=== PATIENT | male | born 1985 | race Caucasian/White ===

== ENCOUNTER 2017-12-18 23:39 | Emergency (ER) | payer MEDICAID ==
[2017-12-18 23:44] VITALS: O2SAT 94
[2017-12-18] MEDS ORDERED: FAMOTIDINE 20 MG/2 ML SDV IVP ONE (23:46)
[2017-12-18] MEDS ORDERED: ONDANSETRON 4 MG/2 ML VIAL IVP ONE (23:46)
[2017-12-18] MEDS ORDERED: NS 1,000 ML IV ONE (23:46)
--- NOTE | 2017-12-18 23:46 | EDPHY ---
H & P Stated Complaint: epigastric abd pain. "I am an alcholic" vomiting blood HPI/ROS: HPI CHIEF COMPLAINT: Epigastric abdominal pain HISTORY OF PRESENT ILLNESS: This patient very pleasant 32-year-old male, he is an alcoholic and drinks 12-14 beers per day. Patient presents emergency room with abdominal pain located in his epigastric region. He states after he binge drinks a large amount of alcohol he gets this discomfort in his abdomen. States this happens to him for very frequently. He drank 12-14 beers yesterday and then started developing epigastric abdominal pain. Denies chest pain or shortness of breath. Denies lower abdominal pain. He states he vomited multiple times today. 1 episode of vomiting had some blood streaks in it. No dark black tarry stool. Denies fever. Past Medical History: Alcohol-induced gastritis, daily alcohol use, alcoholism Past Surgical History: Abscess right arm Social History: Daily alcohol use 12-14 beers per day. Works in construction. Denies other illicit drugs. Family History: Noncontributory ROS REVIEW OF SYSTEMS: A comprehensive 10 point review of systems is otherwise negative aside from elements mentioned in the history of present illness. Exam Constitutional appears well nontoxic no acute distress, triage nursing summary reviewed, vital signs reviewed, awake/alert. Eyes normal conjunctivae and sclera, EOMI, PERRLA. HENT normal inspection, atraumatic, moist mucus membranes, no epistaxis, neck supple/ no meningismus, no raccoon eyes. Respiratory clear to auscultation bilaterally, normal breath sounds, no respiratory distress, no wheezing. Cardiovascular rate normal, regular rhythm, no murmur, no edema, distal pulses normal. Gastrointestinal mild tender palpation epigastric region, no rebound, no guarding, normal bowel sounds, no distension, no pulsatile mass. Genitourinary no CVA tenderness. Musculoskeletal no midline vertebral tenderness, full range of motion, no calf swelling, no tenderness of extremities, no meningismus, good pulses, neurovascularly intact. Skin pink, warm, & dry, no rash, skin atraumatic. Neurologic awake, alert and oriented x 3, AAOx3, moves all 4 extremities equally, motor intact, sensory intact, CN II-XII intact, normal cerebellar, normal vision, normal speech. Psychiatric normal mood/affect. Heme/Lymph/Immune no lymphadenopathy. Differential diagnosis includes but is not limited to and in no particular order : Gastritis, peptic ulcer disease, alcohol-induced gastritis, pancreatitis Bowel obstruction, appendicitis, gallbladder disease, diverticulitis, colitis, enteritis, perforated viscus, gastritis, GERD, esophagitis, urinary tract infection, pyelonephritis, kidney stones Medical Decision Making: Plan for this patient IV establishment with blood draw , check lipase, IV fluids, IV Pepcid IV Zofran nausea, and re-evaluate. Re-evaluation: CT scan abdomen pelvis with IV contrast is negative for acute inflammatory process. Not explain the patient's epigastric pain. On re-examination the patient received IV Protonix. IV Pepcid. IV Zofran. IV fluids, GI cocktail 1 mg IV Dilaudid. This blood work has been reviewed is unremarkable Patient is feeling much better. He would like to go home. I do recommend he refrain from drinking alcohol as this is causing his stomach to be upset. Return precautions discussed with the patient understands return emergency room if develops worsening abdominal pain fever vomiting. Prescription of or ranitidine. Source: Patient - Personal History Current Tetanus/Diphtheria Vaccine: Unsure Current Tetanus Diphtheria and Acellular Pertussis (TDAP): Unsure - Medical/Surgical History Hx Asthma: No Hx Chronic Respiratory Disease: No Hx Diabetes: No Hx Cardiac Disease: No Hx Renal Disease: No Hx Cirrhosis: No Hx Alcoholism: Yes Hx HIV/AIDS: No Hx Splenectomy or Spleen Trauma: No Other PMH: ARM FX W/ SURGERY(I&D), IVDA (heroin), ETOH - Social History Smoking Status: Current some day smoker Constitutional: Initial Vital Signs Temperature (C) 36.5 C 12/18/17 23:41 Heart Rate 88 12/18/17 23:41 Respiratory Rate 16 12/18/17 23:41 Blood Pressure 143/102 H 12/18/17 23:41 O2 Sat (%) 94 12/18/17 23:41 O2 Delivery Mode Room Air Allergies/Adverse Reactions: amoxicillin Allergy (Verified 12/18/17 23:40) Penicillins Allergy (Verified 12/18/17 23:40) Home Medications: Medication Instructions Recorded Ranitidine HCl 150 mg PO DAILY #14 tablet 12/19/17 Medical Decision Making - Data Points Laboratory Results: Laboratory Results 12/19/17 00:00 12/19/17 00:00 12/19/17 12/19/17 12/19/17 01:00 00:00 00:00 WBC RBC Hgb Hct MCV MCH MCHC RDW Plt Count MPV Neut % (Auto) Lymph % (Auto) [place] % (Auto) Eos % (Auto) Baso % (Auto) Nucleat RBC Rel Count Absolute Neuts (auto) Absolute Lymphs (auto) Absolute Monos (auto) Absolute Eos (auto) Absolute Basos (auto) Absolute Nucleated RBC Immature Gran % Immature Gran # PT 14.0 SEC SEC (12.0-15.0) INR 1.06 (0.83-1.16) APTT 26.2 SEC SEC (23.0-38.0) Sodium 146 mEq/L H mEq/L (135-145) Potassium 4.5 mEq/L mEq/L (3.5-5.2) Chloride 101 mEq/L mEq/L (97-110) Carbon Dioxide 23 mEq/l mEq/l (22-31) Anion Gap 22 mEq/L H mEq/L (8-16) BUN 14 mg/dL mg/dL (7-23) Creatinine 0.9 mg/dL mg/dL (0.7-1.3) Estimated GFR > 60 Glucose 110 mg/dL H mg/dL (70-100) Calcium 11.2 mg/dL H mg/dL (8.5-10.4) Phosphorus 4.2 mg/dL mg/dL (2.5-4.5) Total Bilirubin 0.6 mg/dL mg/dL (0.1-1.4) Conjugated Bilirubin 0.3 mg/dL mg/dL (0.0-0.5) Unconjugated Bilirubin 0.3 mg/dL mg/dL (0.0-1.1) AST 53 IU/L IU/L (17-59) ALT 77 IU/L H IU/L (21-72) Alkaline Phosphatase 67 IU/L IU/L (38-126) Total Protein 8.1 g/dL g/dL (6.3-8.2) Albumin 5.3 g/dL H g/dL (3.5-5.0) Lipase 105 IU/L IU/L (23-300) Urine Color YELLOW Urine Appearance CLEAR Urine pH 9.0 H (5.0-7.5) Ur Specific [place] 1.014 (1.002-1.030) Urine Protein NEGATIVE (NEGATIVE) Urine Ketones NEGATIVE (NEGATIVE) Urine Blood NEGATIVE (NEGATIVE) Urine Nitrate NEGATIVE (NEGATIVE) Urine Bilirubin NEGATIVE (NEGATIVE) Urine Urobilinogen NEGATIVE EU EU (0.2-1.0) Ur Leukocyte Esterase NEGATIVE (NEGATIVE) Urine Glucose NEGATIVE (NEGATIVE) Ethyl Alcohol 51 mg/dL H mg/dL (0-10) 12/19/17 00:00 WBC 6.89 10^3/uL 10^3/uL (3.80-9.50) RBC 4.99 10^6/uL 10^6/uL (4.40-6.38) Hgb 16.2 g/dL g/dL (13.7-17.5) Hct 45.1 % % (40.0-51.0) MCV 90.4 fL fL (81.5-99.8) MCH 32.5 pg pg (27.9-34.1) MCHC 35.9 g/dL g/dL (32.4-36.7) RDW 13.1 % % (11.5-15.2) Plt Count 183 10^3/uL 10^3/uL (150-400) MPV 9.9 fL fL (8.7-11.7) Neut % (Auto) 62.1 % % (39.3-74.2) Lymph % (Auto) 27.1 % % (15.0-45.0) [place] % (Auto) 9.3 % % (4.5-13.0) Eos % (Auto) 0.3 % L % (0.6-7.6) Baso % (Auto) 0.6 % % (0.3-1.7) Nucleat RBC Rel Count 0.0 % % (0.0-0.2) Absolute Neuts (auto) 4.28 10^3/uL 10^3/uL (1.70-6.50) Absolute Lymphs (auto) 1.87 10^3/uL 10^3/uL (1.00-3.00) Absolute Monos (auto) 0.64 10^3/uL 10^3/uL (0.30-0.80) Absolute Eos (auto) 0.02 10^3/uL L 10^3/uL (0.03-0.40) Absolute Basos (auto) 0.04 10^3/uL 10^3/uL (0.02-0.10) Absolute Nucleated RBC 0.00 10^3/uL 10^3/uL (0-0.01) Immature Gran % 0.6 % % (0.0-1.1) Immature Gran # 0.04 10^3/uL 10^3/uL (0.00-0.10) PT INR APTT Sodium Potassium Chloride Carbon Dioxide Anion Gap BUN Creatinine Estimated GFR Glucose Calcium Phosphorus Total Bilirubin Conjugated Bilirubin Unconjugated Bilirubin AST ALT Alkaline Phosphatase Total Protein Albumin Lipase Urine Color Urine Appearance Urine pH Ur Specific [place] Urine Protein Urine Ketones Urine Blood Urine Nitrate Urine Bilirubin Urine Urobilinogen Ur Leukocyte Esterase Urine Glucose Ethyl Alcohol Medications Given: Discontinued Medications Al Hydroxide/Mg Hydroxide (Maalox Susp) 30 ml PO ONCE ONE Stop: 12/19/17 00:47 Last Admin: 12/19/17 00:49 Dose: 30 ml Famotidine (Pepcid) 20 mg IVP EDNOW ONE Stop: 12/18/17 23:47 Last Admin: 12/18/17 23:59 Dose: 20 mg Hydromorphone HCl (Dilaudid) 1 mg IVP EDNOW ONE Stop: 12/19/17 01:26 Last Admin: 12/19/17 01:29 Dose: 1 mg Hyoscyamine Sulfate (Levsin, Hyomax-Sl) 0.25 mg PO ONCE ONE Stop: 12/19/17 00:47 Last Admin: 12/19/17 00:49 Dose: 0.25 mg Sodium Chloride (Ns) 1,000 mls @ 0 mls/hr IV EDNOW ONE; Wide Open PRN Reason: Protocol Stop: 12/18/17 23:47 Last Admin: 12/18/17 23:59 Dose: 1,000 mls Lidocaine (Lidocaine 2% Viscous) 15 ml PO ONCE ONE Stop: 12/19/17 00:47 Last Admin: 12/19/17 00:49 Dose: 15 ml Ondansetron HCl (Zofran) 4 mg IVP EDNOW ONE Stop: 12/18/17 23:47 Last Admin: 12/18/17 23:59 Dose: 4 mg Departure - Departure Disposition: Home, Routine, Self-Care Clinical Impression: Gastritis Qualifiers: Gastritis type: alcoholic Gastritis bleeding: without bleeding Condition: Good Instructions: Gastritis (ED) Additional Instructions: 1. Do not drink alcohol. 2. No spicy fatty greasy foods. 3. Zantac as prescribed. Referrals: NONE *PRIMARY CARE P,. [Unknown] - As per Instructions Prescriptions: Ranitidine HCl 150 mg PO DAILY #14 tablet
[2017-12-19 00:09] LABS: PLATELET COUNT 183 10^3/uL (150-400)
[2017-12-19 00:17] LABS: INR 1.06 (0.83-1.16)
[2017-12-19] MEDS ORDERED: LIDOCAINE 2% VISCOUS 15 ML UDCUP PO ONE (00:46)
[2017-12-19] MEDS ORDERED: HYOSCYAMINE SULFATE 0.125 MG TAB PO ONE (00:46)
[2017-12-19] MEDS ORDERED: MAG HYDROX/AL HYDROX/SIMETH 30 ML UDCUP PO ONE (00:46)
[2017-12-19] MEDS ORDERED: HYDROmorphONE/DILAUDID 1 MG/ML INJ IVP ONE (01:25)
[2017-12-19] MEDS ORDERED: IOPAMIDOL (ISOVUE-300) 100 ML BTL ONE (01:46)
[2017-12-19 02:48] VITALS: BP 126/85; PULSE 81; RESP 18; TEMP 97.9
== END 2017-12-19 02:47 | disposition home or self-care (01) ==
DX: K29.20 Alcoholic gastritis without bleeding (principal); F17.200 Nicotine dependence, unspecified, uncomplicated; E86.9 Volume depletion, unspecified
CPT/HCPCS: 96374; G0480; J1170; J2405; Q9967

== ENCOUNTER 2018-08-13 20:40 | Emergency (ER) | payer MEDICAID ==
[2018-08-13] MEDS ORDERED: NS 1,000 ML IV ONE ×2 (20:54→22:49)
[2018-08-13 21:05] LABS: PLATELET COUNT 180 10^3/uL (150-400)
--- NOTE | 2018-08-13 21:08 | CPEKG ---
Test Reason : OPEN Blood Pressure : / mmHG Vent. Rate : 105 BPM Atrial Rate : 105 BPM P-R Int : 181 ms QRS Dur : 092 ms QT Int : 357 ms P-R-T Axes : 047 068 014 degrees QTc Int : [address] elev, probable normal early repol pattern Borderline prolonged QT interval Confirmed by Pineda Bass ([id number]) on 08/13/2018 9:08:06 PM Referred By: Confirmed By:Pineda Bass
--- NOTE | 2018-08-13 23:37 | EDPHY ---
H & P Stated Complaint: witnessed sz while drinking/using mj, hx of sz Time Seen by Provider: 08/13/18 20:40 HPI/ROS: Chief complaint: Seizure History of present illness: This is a 32-year-old male who is brought to the emergency department after having a witnessed tonic-clonic seizure. Patient has had seizures in the past, reported secondary to drug abuse. Patient does state he was drinking alcohol today, using marijuana and using kratom. Tonic- clonic activity was reported by bystanders. A postictal state has been noted. On my evaluation he is awake. States he does not remember the event. States he has had seizures in the past. He is not followed by Neurology, he does not take medications. He reports a mild headache. He states his left ankle is sore. He has no other complaints. Review of systems: A 10 point review of systems was obtained and other than described above was negative. - Medical/Surgical History Hx Asthma: No Hx Chronic Respiratory Disease: No Hx Diabetes: No Hx Cardiac Disease: No Hx Renal Disease: No Hx Cirrhosis: No Hx Alcoholism: Yes Hx HIV/AIDS: No Hx Splenectomy or Spleen Trauma: No Other PMH: ARM FX W/ SURGERY(I&D), IVDA (heroin), ETOH, sz - Social History Smoking Status: Current some day smoker - Physical Exam Exam: General Appearance: Alert, no distress. Eyes: Pupils constricted to 1-2 mm but reactive. EOM intact. ENT, Mouth: Mucous membranes moist. Respiratory: There are no retractions, lungs are clear to auscultation. Cardiovascular: Regular rate and rhythm. Gastrointestinal: Abdomen is soft and non tender, no masses, bowel sounds normal. Neurological: Alert and oriented x4. Cranial nerves 2-12 grossly intact. Strength and sensation intact and symmetrical. Skin: Warm and dry, no rashes. Musculoskeletal: The head is nontender. Neck is supple non tender. The spine is nontender. Extremities are symmetrical, full range of motion. Mild edema diffusely of the left ankle. He is ranging it well. Mild tenderness diffusely. Psychiatric: Patient is oriented X 3, there is no agitation. Constitutional: Initial Vital Signs Temperature (C) 36.8 C 08/13/18 20:49 Heart Rate 107 H 08/13/18 20:49 Respiratory Rate 18 08/13/18 20:49 Blood Pressure 133/77 H 08/13/18 20:49 O2 Sat (%) 100 08/13/18 20:49 O2 Delivery Mode Room Air O2 (L/minute) 2 Allergies/Adverse Reactions: amoxicillin Allergy (Verified 08/13/18 20:52) Penicillins Allergy (Verified 08/13/18 20:52) Home Medications: Medication Instructions Recorded Ranitidine HCl 150 mg PO DAILY #14 tablet 12/19/17 Medical Decision Making - Diagnostics Imaging: Discussed imaging studies w/ radio director Radiologist ED Course/Re-evaluation: Patient was discussed with my secondary supervising physician Dr. Pineda Bass. Patient presents to the emergency department with EMS after having a reported tonic-clonic seizure. On my evaluation he is nontoxic. Physical exam is largely benign including a nonfocal neurologic exam. Lab studies consistent with a recent seizure with decreased bicarbonate. CT scan of the head and x- ray of the left ankle unremarkable. I do believe he had a seizure. Certainly this could be from polysubstance abuse. I do not appreciate further underlying pathology that requires inpatient management. He has been IV hydrated. He is ambulating without difficulty. He has been observed in the emergency room for over 3 hr. He will be discharged home. I have discussed seizure precautions with him at length. He is asked to follow up with Neurology for continued evaluation and care. Strict return precautions were given. The patient voiced understanding and agreement with plan. Differential Diagnosis: Included but not limited to syncope, drug-induced/alcohol seizure, epilepsy - Data Points Laboratory Results: Laboratory Results 08/13/18 20:57 08/13/18 20:57 Medications Given: Discontinued Medications Sodium Chloride (Ns) 1,000 mls @ 0 mls/hr IV ONCE ONE; Wide Open PRN Reason: Protocol Stop: 08/13/18 20:55 Last Admin: 08/13/18 21:13 Dose: 1,000 mls Sodium Chloride (Ns) 1,000 mls @ 0 mls/hr IV EDNOW ONE; Wide Open PRN Reason: Protocol Stop: 08/13/18 22:50 Last Admin: 08/13/18 23:05 Dose: 1,000 mls Departure - Departure Disposition: Home, Routine, Self-Care Clinical Impression: Seizure, Left ankle sprain Condition: Good Instructions: Recurrent Seizures in Adults (ED) Additional Instructions: Follow-up with a primary care doctor and a neurologist for continued evaluation and care You must maintain seizure precautions until cleared by your doctor. This includes no driving, no operating machinery, no swimming or bathing, no performing any activities where if you had a seizure you could cause injury or to yourself or other people. If symptoms worsen or new symptoms develop return to the emergency room for recheck Referrals: NONE *PRIMARY CARE P,. [Primary Care Provider] - As per Instructions [facility] [address] [Clinic] - As per Instructions Sae Montanez DO [Medical Doctor] - As per Instructions
[2018-08-13 23:56] VITALS: BP 142/98
== END 2018-08-13 23:56 | disposition home or self-care (01) ==
LOC: EDUNIT#
DX: R56.9 Unspecified convulsions (principal); S93.402A Sprain of unspecified ligament of left ankle, initial encounter; E86.9 Volume depletion, unspecified; Z86.69 Personal history of other diseases of the nervous system and sense organs; F17.200 Nicotine dependence, unspecified, uncomplicated
CPT/HCPCS: G0480; L4350